=== PATIENT | female | born 1975 | race Native Hawaiian/Other Pacific Islander ===

== ENCOUNTER 2016-07-26 00:55 | Emergency (ER) | payer BC, OTHER ==
--- NOTE | 2016-07-26 01:39 | ED Physician Documentation ---
History of Present Illness - Stated complaint Stated Complaint: COUGHING UP BLOOD - Chief complaint Chief Complaint: Resp - History obtained from History obtained from: Patient, Family - History of Present Illness Timing: Today Pain level max: 0 Pain level now: 0 Improved by: nothing Worsened by: nothing - Additonal information Additional information: Patient is a 40-year-old female who presents to the emergency department after coughing tonight. After a coughing spell, she had a small amount of bright red blood. This is now turned light pink. Not having any dyspnea or chest pain. Not on control pills. No recent surgery. No recent immobilization. Does not smoke. No fevers. Review of Systems Constitutional: denies: Fever, Chills Ears: denies: Ear pain Nose: denies: Rhinorrhea / runny nose, Congestion Cardiac: denies: Chest pain / pressure, Palpitations Respiratory: reports: Cough, Hemoptysis. denies: Dyspnea, Wheezing GI: denies: Nausea, Vomiting, Diarrhea : denies: Dysuria Skin: denies: Rash Musculoskeletal: denies: Neck pain, Back pain Neurologic: denies: Headache PD PAST MEDICAL HISTORY - Past Medical History Past Medical History: No - Present Medications Home Medications: Ambulatory Orders Medication Instructions Recorded Confirmed Azithromycin [Zithromax] 250 mg PO DAILY #4 tablet 07/26/16 - Allergies Allergies/Adverse Reactions: Allergies Allergy/AdvReac Type Severity Reaction Status Date / Time pineapple [Pineapple] Allergy Severe Respiratory Verified 07/26/16 01:08 - Living Situation Living Situation: reports: With family Living Arrangement: reports: At home - Social History Smoking Status: Unknown if ever smoked Does the pt have substance abuse?: No - Family History Family history: reports: Non contributory PD ED PE NORMAL - Vitals Vital signs reviewed: Yes - General General: Alert and oriented X 3, No acute distress, Well developed/nourished - HEENT HEENT: PERRL, Ears normal, Moist mucous membranes, Pharynx benign - Neck Neck: Supple, no meningeal sign - Cardiac Cardiac: RRR, Strong equal pulses - Respiratory Respiratory: No respiratory distress, Clear bilaterally - Abdomen Abdomen: Soft, Non tender, Non distended - Derm Derm: Warm and dry - Extremities Extremities: No edema - Neuro Neuro: Alert and oriented X 3 - Psych Psych: Normal mood, Normal affect Results - Vitals Vitals: Vital Signs - 24 hr 07/26/16 07/26/16 07/26/16 01:08 02:05 03:05 Temperature 36.7 C Heart Rate 76 62 65 Respiratory 18 20 16 Rate Blood Pressure 235/118 H 237/124 H 236/120 H O2 Saturation 97 97 99 Oxygen O2 Source Room air - Rads (name of study) cxr Radiology: Prelim report reviewed, EMP read contemporaneously, See rad report ( Right upper lobe opacities concerning for infiltrates. Bronchial wall thickening consistent with bronchitis or reactive airways disease. No effusions or pneumothorax noted. ) PD MEDICAL DECISION MAKING - ED course Complexity details: reviewed results, re-evaluated patient, considered differential, d/w patient, d/w family ED course: Patient is a 40-year-old female who presents to the emergency department with a small amount of hemoptysis. Appears to be secondary to coughing. Concerning for pneumonia on chest x-ray. Will place on antibiotics and have her follow-up with her doctor. No evidence of pulmonary embolus. No recurrent hemoptysis here. Patient counseled regarding signs and symptoms for which I believe and urgent re-evaluation would be necessary. Patient with good understanding of and agreement to plan and is comfortable going home at this time This document was made in part using voice recognition software. While efforts are made to proofread this document, sound alike and grammatical errors may occur. Departure - Departure Disposition: 01 Home, Self Care Clinical Impression: Hemoptysis Pneumonia Qualifiers: Pneumonia type: due to unspecified organism Laterality: right Lung location: upper lobe of lung Qualified Code(s): J18.1 - Lobar pneumonia, unspecified organism Hypertension Qualifiers: Hypertension type: essential hypertension Qualified Code(s): I10 - Essential ( primary) hypertension Condition: Good Instructions: ED Pneumonia Adult, ED Hemoptysis Follow-Up: your,doctor in 3 days [Other] Prescriptions: Azithromycin [Zithromax] 250 mg PO DAILY #4 tablet Comments: Return if you worsen. This should improve over the next 24 hours. Your blood pressure was elevated today on check in to the emergency department. This does not mean that you have hypertension, it is a common phenomenon to check into the emergency department and have elevated blood pressure. I recommend that you see your primary care physician within the week to have it rechecked when you're feeling better. Forms: Activity restrictions Discharge Date/Time: 07/26/16 03:05
--- NOTE | 2016-07-26 02:07 | XRAY Preliminary Report ---
Exam: XR Chest 2 View PA/LAT IMPRESSION: 1. Right upper lobe opacities concerning for infiltrates. 2. Peribronchial wall thickening consistent with bronchitis or reactive airways disease. 3. No effusions or pneumothorax noted. [facility] SITE ID: [id number]
--- NOTE | 2016-07-26 02:18 | XRAY Report ---
EXAM: CHEST RADIOGRAPHY EXAM DATE: 07/26/2016 01:52 AM. CLINICAL HISTORY: Cough, hemoptysis. COMPARISON: 08/30/2006. TECHNIQUE: 2 views. FINDINGS: Lungs/Pleura: Bronchial wall thickening noted. Reticulonodular opacities are noted in the right upper lobe. Perihilar interstitial prominence present. No effusions or pneumothorax. Mediastinum: Heart and mediastinal contours are unremarkable. Other: None. IMPRESSION: 1. Right upper lobe opacities concerning for infiltrates. 2. Bronchial wall thickening consistent with bronchitis or reactive airways disease. 3. No effusions or pneumothorax noted. [facility] Referring Provider Line: [phone] SITE ID: [id number]
[2016-07-26] MEDS ORDERED: AZITHROMYCIN 250 MG TABLET PO STA (02:55)
[2016-07-26] MEDS ORDERED: AZITHROMYCIN 250 MG TABLET PO ONE (02:59)
[2016-07-26 03:07] VITALS: BP 236/120
== END 2016-07-26 03:05 | disposition home or self-care (01) ==
LOC: ED 00:55
DX: R04.2 Hemoptysis (principal); J18.9 Pneumonia, unspecified organism; I10 Essential (primary) hypertension
CPT/HCPCS: 71020; 99283; A9270

== ENCOUNTER 2016-07-29 15:09 | Outpatient (CLI) | payer BC ==
[2016-07-29 17:44] LABS: BILIRUBIN,URINE NEGATIVE (NEGATIVE); PH,URINE 5.5 PH (5.0-7.5)
[2016-07-29 18:13] LABS: BASOPHILS # (AUTO) 0.1 10^3/uL (0.0-0.1); BASOPHILS % (AUTO) 0.9 %; EOSINOPHILS # (AUTO) 0.2 10^3/uL (0.0-0.7); EOSINOPHILS % (AUTO) 1.8 %; HCT - HEMATOCRIT 40.5 % (37.0-47.0); HGB - HEMOGLOBIN 13.3 g/dL (12.0-16.0); LYMPHOCYTES # (AUTO) 1.9 10^3/uL (1.5-3.5); LYMPHOCYTES % (AUTO) 18.4 %; MEAN CORPUSCULAR HEMOGLOBIN 25.8 pg (27.0-31.0); MEAN CORPUSCULAR HGB CONC 32.8 g/dL (32.0-36.0); MEAN CORPUSCULAR VOLUME 78.8 fL (81.0-99.0); MEAN PLATELET VOLUME 7.9 fL (7.9-10.8); MONOCYTES # (AUTO) 0.7 10^3/uL (0.0-1.0); MONOCYTES % (AUTO) 7.1 %; NEUTROPHILS # (AUTO) 7.3 10^3/uL (1.5-6.6); NEUTROPHILS % (AUTO) 71.8 %; RED BLOOD COUNT 5.15 10^6/uL (4.20-5.40); RED CELL DISTRIBUTION WIDTH 14.6 % (12.0-15.0); UNCORRECTED WHITE BLOOD COUNT 10.1 x10^3/uL; WHITE BLOOD COUNT 10.1 x10^3/uL (4.8-10.8)
[2016-07-29 18:31] LABS: ALBUMIN/GLOBULIN RATIO 0.9 (1.0-2.2); BILIRUBIN,TOTAL 0.2 mg/dL (0.2-1.0); BUN - BLOOD UREA NITROGEN 18 mg/dL (6-20); CALCIUM 8.6 mg/dL (8.5-10.3); CARBON DIOXIDE - CO2 24 mmol/L (21-32); CHLORIDE 104 mmol/L (101-111); CHOL/HDL RATIO 3.9 (<4.4); CHOLESTEROL 181 mg/dL; CREATININE 1.1 mg/dL (0.4-1.0); GFR - MDRD 56 (>89); GLUCOSE 94 mg/dL (70-100); HDL CHOLESTEROL 46 mg/dL; LDL/HDL RATIO 2.5 (<4.4); SODIUM 136 mmol/L (135-145); TOTAL PROTEIN 8.2 g/dL (6.7-8.2); TRIGLYCERIDES 99 mg/dL; UR CULTURE IF IND NOT INDICATED; VLDL CHOLESTEROL 20 mg/dL
== END 2016-07-29 15:10 | disposition home or self-care (01) ==
LOC: LAB.F 15:09
PROVIDERS: ATTEND Internal Medicine
DX: I10 Essential (primary) hypertension (principal)
CPT/HCPCS: 36415; 80053; 80061; 81001; 84443; 85025; 87086

== ENCOUNTER 2016-08-15 16:06 | Outpatient (CLI) | payer BC, OTHER ==
[2016-08-15 19:13] LABS: CREATININE 1.3 mg/dL (0.4-1.0); POTASSIUM 3.2 mmol/L (3.5-5.0)
== END 2016-08-15 16:07 | disposition home or self-care (01) ==
LOC: LAB.F 16:06
PROVIDERS: ATTEND Internal Medicine
DX: I10 Essential (primary) hypertension (principal)
CPT/HCPCS: 36415; 80048

== ENCOUNTER 2016-09-15 15:59 | Outpatient (CLI) | payer BC, OTHER ==
[2016-09-15 18:55] LABS: CREATININE 1.1 mg/dL (0.4-1.0); POTASSIUM 3.8 mmol/L (3.5-5.0)
== END 2016-09-15 16:00 | disposition home or self-care (01) ==
LOC: LAB.F 15:59
PROVIDERS: ATTEND Internal Medicine
DX: I10 Essential (primary) hypertension (principal)
CPT/HCPCS: 36415; 80048

== ENCOUNTER 2016-11-25 15:06 | Outpatient (CLI) | payer BC, OTHER ==
[2016-11-25 18:27] LABS: ALBUMIN/GLOBULIN RATIO 0.8 (1.0-2.2); BILIRUBIN,TOTAL 0.4 mg/dL (0.2-1.0); CREATININE 1.7 mg/dL (0.4-1.0); POTASSIUM 4.1 mmol/L (3.5-5.0); TOTAL PROTEIN 8.6 g/dL (6.7-8.2)
== END 2016-11-25 15:07 | disposition home or self-care (01) ==
LOC: LAB.F 15:06
PROVIDERS: ATTEND Physician Assistant Medical
DX: I10 Essential (primary) hypertension (principal)
CPT/HCPCS: 36415; 80053

== ENCOUNTER 2017-02-24 14:41 | Outpatient (CLI) | payer BC, OTHER ==
[2017-02-24 18:42] LABS: ALBUMIN 3.8 g/dL (3.2-5.5); ALBUMIN/GLOBULIN RATIO 0.8 (1.0-2.2); BILIRUBIN,TOTAL 0.2 mg/dL (0.2-1.0); CALCIUM 8.9 mg/dL (8.5-10.3); CREATININE 1.1 mg/dL (0.4-1.0); TOTAL PROTEIN 8.3 g/dL (6.7-8.2)
== END 2017-02-24 14:42 | disposition home or self-care (01) ==
LOC: LAB.F 14:41
PROVIDERS: ATTEND Physician Assistant Medical
DX: N28.9 Disorder of kidney and ureter, unspecified (principal)
CPT/HCPCS: 36415; 80053

== ENCOUNTER 2017-05-05 10:46 | Outpatient (CLI) | payer BC, OTHER ==
--- NOTE | 2017-05-05 13:33 | XRAY Report ---
TWO VIEW CHEST: 05/05/2017 CLINICAL INDICATION: Cough. COMPARISON: 07/26/2016. FINDINGS: Frontal and lateral views of the chest demonstrate a normal cardiac silhouette. The lungs are clear. No effusion or pneumothorax is present. IMPRESSION: RESOLUTION OF PREVIOUSLY SEEN INFILTRATES. NORMAL CHEST. TD: 05/05/2017 13:32
== END 2017-05-05 10:47 | disposition home or self-care (01) ==
LOC: DI.S 10:46
PROVIDERS: ATTEND Nurse Practitioner Family
DX: R05 Cough (principal)
CPT/HCPCS: 71046

== ENCOUNTER 2017-10-18 13:20 | Outpatient (CLI) | payer BC, OTHER ==
[2017-10-18 18:02] LABS: CALCIUM 8.6 mg/dL (8.5-10.3)
== END 2017-10-18 13:21 | disposition home or self-care (01) ==
LOC: LAB.F 13:20
PROVIDERS: ATTEND Internal Medicine
DX: I10 Essential (primary) hypertension (principal)
CPT/HCPCS: 36415; 80048

== ENCOUNTER 2017-10-23 10:32 | Emergency (ER) | payer BC, OTHER ==
[2017-10-23 11:31] LABS: BILIRUBIN,URINE NEGATIVE (NEGATIVE); GLUCOSE, URINE (UA) NEGATIVE (NEGATIVE); KETONES,URINE (UA) NEGATIVE (NEGATIVE); LEUKOCYTE ESTERASE, URINE NEGATIVE (NEGATIVE); NITRITE,URINE NEGATIVE (NEGATIVE); OCCULT BLOOD,URINE TRACE-LYSE (NEGATIVE); PH,URINE 7.5 PH (5.0-7.5); PROTEIN,URINE TRACE mg/dL (NEGATIVE); UROBILINOGEN,URINE 0.2 (NORMAL) E.U./dL (NORMAL)
[2017-10-23 11:34] LABS: CLARITY,URINE CLEAR (CLEAR)
[2017-10-23 11:35] LABS: HCG UR QUAL NEGATIVE
--- NOTE | 2017-10-23 12:50 | ED Physician Documentation ---
PD HPI HEADACHE - Stated complaint Stated Complaint: LT SIDE TINGLING/GILLIS/CRAMPING - Chief complaint Chief Complaint: Neuro - History obtained from History obtained from: Patient - History of Present Illness Timing - onset: How many days ago (3-4) Timing - onset during: Light activity Timing - duration: Minutes Timing - details: Gradual onset, Now resolved, Intermittant Worst headache ever?: No: Worst headache ever? Location: Back, Global Quality: Throbbing, Aching Associated symptoms: Nausea. No: Fever, Stiff neck, Vomiting, Weakness, Eye pain Improved by: Rest Worsened by: No: Light, Noise Contributing factors: Hypertension. No: Anticoagulated, Recent illness, Trauma Similar symptoms before: Has not had sx before Recently seen: Clinic (had been off BP meds as she was doing well with BP. Meds had run out and did not get refill. Now BP has been elevated and was as high as 200s systolic recently. Seen PCP Clinic and had her prior all 4 meds resumed. This was 2 days prior to starting above symptoms.) Review of Systems Constitutional: denies: Fever, Chills, Myalgias Eyes: reports: Decreased vision (she says vision in left eye was briefly blurry yesterday. Otherwise normal vision. No focal weakness nor fumbling. Says her left arm feels tingling at times the past few days.). denies: Loss of vision, Photophobia Ears: denies: Loss of hearing, Ear pain, Drainage/discharge Nose: denies: Rhinorrhea / runny nose, Congestion Throat: denies: Sore throat Cardiac: denies: Chest pain / pressure, Palpitations Respiratory: denies: Dyspnea, Cough GI: denies: Abdominal Pain, Nausea : denies: Dysuria, Frequency Skin: denies: Rash Neurologic: reports: Headache. denies: Focal weakness, Near syncope, Confused, Altered mental status, Head injury Psychiatric: denies: Depressed, Suicidal Endocrine: denies: Easy bruising / bleeding Immunocompromised: denies: Immunocompromised PD PAST MEDICAL HISTORY - Past Medical History Cardiovascular: Hypertension Respiratory: None Neuro: None GI: GERD, Ulcers - Past Surgical History General: Appendectomy, Colonoscopy - Present Medications Home Medications: Ambulatory Orders Medication Instructions Recorded Confirmed Azithromycin [Zithromax] 250 mg PO DAILY #4 tablet 07/26/16 Naproxen [Naprosyn] 500 mg PO BID PRN #20 tablet 10/23/17 Ondansetron HCl [Zofran] 4 mg PO Q6H PRN #20 tablet 10/23/17 - Allergies Allergies/Adverse Reactions: Allergies Allergy/AdvReac Type Severity Reaction Status Date / Time pineapple [Pineapple] Allergy Severe Respiratory Verified 07/26/16 01:08 - Social History Does the pt smoke?: No Smoking Status: Unknown if ever smoked Does the pt drink ETOH?: No Does the pt have substance abuse?: No - Family History Family history: denies: Cerebral aneurysm - Immunizations Immunizations are current?: Yes PD ED PE NORMAL - Vitals Vital signs reviewed: Yes - General General: Alert and oriented X 3, No acute distress, Well developed/nourished - HEENT HEENT: Atraumatic, PERRL, EOMI, Ears normal, Moist mucous membranes, Pharynx benign - Neck Neck: Supple, no meningeal sign, No adenopathy, No JVD - Cardiac Cardiac: RRR, No murmur - Respiratory Respiratory: Clear bilaterally - Abdomen Abdomen: Soft, Non tender - Back Back: No CVA TTP - Derm Derm: Normal color, Warm and dry - Extremities Extremities: No deformity, No tenderness to palpate, Normal ROM s pain, No edema , No calf tenderness / cord - Neuro Neuro: Alert and oriented X 3, raise driller 2-12 intact, No motor deficit, No sensory deficit, Normal speech, Other (normal gait) Eye Opening: Spontaneous Motor: Obeys Commands Verbal: Oriented GCS Score: 15 Results - Vitals Vitals: Oxygen O2 Source Room air - Labs Labs: Laboratory Tests 10/23/17 10/23/17 10/23/17 11:02 11:18 11:18 WBC RBC Hgb Hct MCV MCH MCHC RDW Plt Count MPV Neut # (Auto) Lymph # (Auto) Hayes # (Auto) Eos # (Auto) Baso # (Auto) Absolute Nucleated RBC Nucleated RBC % Sodium Potassium Chloride Carbon Dioxide Anion Gap BUN Creatinine Estimated GFR (MDRD) Glucose POC Whole Bld Glucose 108 H Calcium Magnesium Total Bilirubin AST ALT Alkaline Phosphatase Troponin I Total Protein Albumin Globulin Albumin/Globulin Ratio Lipase Urine Color YELLOW Urine Clarity CLEAR Urine pH 7.5 Ur Specific [place] 1.015 1.015 Urine Protein TRACE Urine Glucose (UA) NEGATIVE Urine Ketones NEGATIVE Urine Occult Blood TRACE-LYSE Urine Nitrite NEGATIVE Urine Bilirubin NEGATIVE Urine Urobilinogen 0.2 (NORMAL) Ur Leukocyte Esterase NEGATIVE Ur Microscopic Review NOT INDICATED Urine Culture Comments NOT INDICATED Urine HCG, Qual NEGATIVE 10/23/17 10/23/17 10/23/17 13:30 13:30 13:30 WBC 9.5 RBC 5.53 H Hgb 13.2 Hct 40.7 MCV 73.5 L MCH 23.9 L MCHC 32.5 RDW 16.2 H Plt Count 419 MPV 6.7 L Neut # (Auto) 6.8 H Lymph # (Auto) 1.6 Hayes # (Auto) 0.7 Eos # (Auto) 0.2 Baso # (Auto) 0.1 Absolute Nucleated RBC 0.00 Nucleated RBC % 0.0 Sodium 135 Potassium 3.9 Chloride 102 Carbon Dioxide 24 Anion Gap 9.0 BUN 23 H Creatinine 1.0 Estimated GFR (MDRD) 62 L Glucose 117 H POC Whole Bld Glucose Calcium 9.2 Magnesium 2.1 Total Bilirubin 0.7 AST 16 ALT 17 Alkaline Phosphatase 90 Troponin I < 0.04 Total Protein 8.9 H Albumin 3.8 Globulin 5.1 H Albumin/Globulin Ratio 0.7 L Lipase 55 H Urine Color Urine Clarity Urine pH Ur Specific [place] Urine Protein Urine Glucose (UA) Urine Ketones Urine Occult Blood Urine Nitrite Urine Bilirubin Urine Urobilinogen Ur Leukocyte Esterase Ur Microscopic Review Urine Culture Comments Urine HCG, Qual - Rads (name of study) head CT Radiology: Prelim report reviewed (normal study) PD MEDICAL DECISION MAKING - ED course Complexity details: reviewed results (labs and CT are okay. She has had symptoms for days and serious causes like bleed/tumor/mass effect/large CVA are excluded. Small CVA or lesions like MS might be missed. Talked with patient about potential other imaging if not improved with oral meds for few days. Otherwise the symptoms started couple days after resuming 3 BP meds, so most likely side effect of those. To cut down to just one of them (or two) and see how BP does. It was a bit too good at times here in ED (down to 120 systolic). ), considered differential (the arm tingling sounds like it is from shoulder impingement, worse with ROM and lifting of arm. Intermittent headache generally. Had difficulty completing one sentence yesterday at work, otherwise normal speech, motor, interaction and conversation. ), d/w patient - Sepsis Event Vital Signs: Oxygen O2 Source Room air Departure - Departure Disposition: 01 Home, Self Care Clinical Impression: Tingling of left upper extremity Headache Qualifiers: Headache type: unspecified Headache chronicity pattern: acute headache Intractability: not intractable Qualified Code(s): R51 - Headache Hypertension Qualifiers: Hypertension type: essential hypertension Qualified Code(s): I10 - Essential ( primary) hypertension Condition: Stable Record reviewed to determine appropriate education?: Yes Instructions: ED Cephalgia Unspecified Follow-Up: Levi Wetzel MD [Primary Care Provider] - Prescriptions: Naproxen [Naprosyn] 500 mg PO BID PRN #20 tablet PRN Reason: Pain Ondansetron HCl [Zofran] 4 mg PO Q6H PRN #20 tablet PRN Reason: Nausea / Vomiting Comments: I would decrease her blood pressure medicine to just the losartan and may be the chlorthalidone with potassium as well. Hold off on the lisinopril for sure for now. See how your blood pressure does over the next week. It may be that you do not need to be on all the medicines he had been on previously. Your blood pressure was quite good here and perhaps a little too good right away. Use some naproxen twice daily if needed for headache. Add ondansetron if needed for nausea. The CT scan and blood tests and your heart monitor did not show any signs of acute intracranial or cardiac process. Follow-up with your primary care in about a week, call for an appointment. Discharge Date/Time: 10/23/17 15:38
[2017-10-23] MEDS ORDERED: ACETAMINOPHEN 325 MG TABLET PO STA (13:22)
[2017-10-23] MEDS ORDERED: NAPROXEN 250 MG TABLET PO STA (13:22)
[2017-10-23] MEDS ORDERED: ONDANSETRON ODT 4 MG TABLET TL STA (13:22)
[2017-10-23 13:39] LABS: BASOPHILS # (AUTO) 0.1 10^3/uL (0.0-0.1); BASOPHILS % (AUTO) 1.1 %; EOSINOPHILS # (AUTO) 0.2 10^3/uL (0.0-0.7); EOSINOPHILS % (AUTO) 2.2 %; HGB - HEMOGLOBIN 13.2 g/dL (12.0-16.0); LYMPHOCYTES # (AUTO) 1.6 10^3/uL (1.5-3.5); LYMPHOCYTES % (AUTO) 17.2 %; MEAN CORPUSCULAR HEMOGLOBIN 23.9 pg (27.0-31.0); MEAN CORPUSCULAR HGB CONC 32.5 g/dL (32.0-36.0); MEAN CORPUSCULAR VOLUME 73.5 fL (81.0-99.0); MEAN PLATELET VOLUME 6.7 fL (7.9-10.8); MONOCYTES # (AUTO) 0.7 10^3/uL (0.0-1.0); MONOCYTES % (AUTO) 7.5 %; NEUTROPHILS # (AUTO) 6.8 10^3/uL (1.5-6.6); PLT - PLATELET COUNT 419 10^3/uL (130-450); RED BLOOD COUNT 5.53 10^6/uL (4.20-5.40); RED CELL DISTRIBUTION WIDTH 16.2 % (12.0-15.0); WHITE BLOOD COUNT 9.5 x10^3/uL (4.8-10.8)
[2017-10-23 13:51] LABS: ALBUMIN 3.8 g/dL (3.2-5.5); ALBUMIN/GLOBULIN RATIO 0.7 (1.0-2.2); BILIRUBIN,TOTAL 0.7 mg/dL (0.2-1.0); CALCIUM 9.2 mg/dL (8.5-10.3); MAGNESIUM 2.1 mg/dL (1.7-2.8); TOTAL PROTEIN 8.9 g/dL (6.7-8.2)
--- NOTE | 2017-10-23 13:55 | CT Report ---
Reason: headache and left arm tingling Procedure Date: 10/23/2017 Accession Number: [id number] / [id number] Procedure: CT - Head W/O CPT Code: FULL RESULT: EXAM: CT HEAD EXAM DATE: 10/23/2017 01:47 PM. CLINICAL HISTORY: Tingling in left arm. Headache. COMPARISON: None. TECHNIQUE: Multiaxial CT images were obtained from the foramen magnum to the vertex. Reformats: Sagittal and coronal. IV contrast: None. In accordance with CT protocol optimization, one or more of the following dose reduction techniques were utilized for this exam: automated exposure control, adjustment of mA and/or KV based on patient size, or use of iterative reconstructive technique. FINDINGS: Parenchyma: No intraparenchymal hemorrhage. No evidence of mass, midline shift, or CT findings of infarction. Paez-white differentiation is distinct. Extraaxial Spaces: Normal for age. No subdural or epidural collections identified. Ventricles: Normal in size and position. Sinuses and Orbits: Imaged paranasal sinuses, orbits, and mastoids show no significant abnormality. Bones: No evidence of fracture or calvarial defect. Other: None. IMPRESSION: Negative nonenhanced head CT. [facility]
[2017-10-23 14:29] VITALS: BP 127/88
== END 2017-10-23 15:38 | disposition home or self-care (01) ==
LOC: ED 10:32
DX: R20.0 Anesthesia of skin (principal); R51 Headache; I10 Essential (primary) hypertension
CPT/HCPCS: 36415; 70450; 80053; 81003; 81025; 83690; 83735; 84484; 85025; 99283; A9270; Q0162; 81001; 87086

== ENCOUNTER 2019-07-02 07:00 | Outpatient (CLI) | payer BC, OTHER ==
[2019-07-02 22:13] LABS: CANDIDA GROUP DNA NEGATIVE (NEGATIVE); CANDIDA KRUSEI DNA NEGATIVE (NEGATIVE); TRICHOMONAS VAGINALIS DNA NEGATIVE (NEGATIVE)
== END 2019-07-02 23:59 | disposition home or self-care (01) ==
LOC: LAB.R 07:00
PROVIDERS: ATTEND Obstetrics & Gynecology
DX: N76.0 Acute vaginitis (principal)
CPT/HCPCS: 87661; 87801

== ENCOUNTER 2019-09-06 10:16 | Outpatient (CLI) | payer OTHER, BC ==
[2019-09-06 11:21] LABS: HB2 TOTAL 11.3 g/dL; HEMOGLOBIN A1C 0.52 g/dL; HEMOGLOBIN A1C % 6.4 % (4.6-6.2)
[2019-09-06 11:42] LABS: CHOL/HDL RATIO 3.8 (<4.4); CHOLESTEROL 187 mg/dL; HDL CHOLESTEROL 49 mg/dL; LDL CHOLESTEROL,CALCULATED 113 mg/dL; LDL/HDL RATIO 2.3 (<4.4); VLDL CHOLESTEROL 25 mg/dL
[2019-09-06 11:50] LABS: FOLLICLE STIMULATING HORMONE 3.76 mIU/mL
== END 2019-09-06 10:17 | disposition home or self-care (01) ==
LOC: LAB 10:16
PROVIDERS: ATTEND Obstetrics & Gynecology
DX: E78.00 Pure hypercholesterolemia, unspecified (principal); E28.2 Polycystic ovarian syndrome; Z86.32 Personal history of gestational diabetes; N93.8 Other specified abnormal uterine and vaginal bleeding
CPT/HCPCS: 36415; 80061; 81599; 82670; 83001; 83036; 83498; 83721; 84403; 84443

== ENCOUNTER 2019-09-10 10:42 | Outpatient (CLI) | payer OTHER, BC | END 2019-09-10 10:43 | disposition home or self-care (01) | LOC: LAB 10:42 | PROVIDERS: ATTEND Obstetrics & Gynecology | DX: E28.2 Polycystic ovarian syndrome (principal); R73.09 Other abnormal glucose | CPT/HCPCS: 36415; 82951 ==

== ENCOUNTER 2019-09-22 07:20 | Outpatient (CLI) | payer OTHER, BC ==
--- NOTE | 2019-09-22 11:40 | Ultrasound Report ---
PROCEDURE: Pelvic w/Transvaginal INDICATIONS: HYPERETROGENISM, DUB, POLYCYSTIC OVARY SYNDROME TECHNIQUE: Real-time scanning was performed of the pelvic organs, with image documentation. Additional endovagi nal scanning was necessary due to incomplete visualization of the adnexal and endometrial structures by transabdominal scanning. COMPARISON: None. FINDINGS: Transabdominal scanning: Limited scanning through the kidneys shows no hydronephrosis. No pathologi c free abdominal or pelvic fluid. Endovaginal scanning: Uterus: Uterus is normal in size at 11.2 x 4.8 x 6.2 cm. Uterine echotexture is diffusely heterogen eous The endometrium measures 8 mm in combined thickness. Ovaries: Right ovary is within normal limits and contains a dominant follicular cyst measuring 19 mm . Left ovary is not seen. IMPRESSION: 1. Heterogeneous uterine echotexture, which is of uncertain significance, and could be further assess ed with pelvic MRI with and without intravenous contrast, if clinically indicated. 2. Normal right ovary. Left ovary not seen. Reviewed by: Phillip Salomon MD on 09/22/2019 11:38 AM PDT Approved by: Phillip Salomon MD on 09/22/2019 11:38 AM PDT Station ID: [id number]
== END 2019-09-22 07:21 | disposition home or self-care (01) ==
LOC: DI 07:20
PROVIDERS: ATTEND Obstetrics & Gynecology
DX: R93.89 Abnormal findings on diagnostic imaging of other specified body structures (principal)
CPT/HCPCS: 76830; 76856

== ENCOUNTER 2019-10-02 08:26 | Outpatient (CLI) | payer OTHER, BC ==
--- NOTE | 2019-10-03 09:23 | Mammography Report ---
BILATERAL DIGITAL SCREENING MAMMOGRAM 3D/2D: 10/02/2019 CLINICAL: Routine screening. Baseline exam. No prior exams were available for comparison. The tissue of both breasts is heterogeneously dense. T his may lower the sensitivity of mammography. There is an oval equal density focal asymmetry with an indistinct margin in the left breast at 1 o'cl ock posterior depth. No other significant masses, calcifications, or other findings are seen in either breast. IMPRESSION: INCOMPLETE: NEEDS ADDITIONAL IMAGING EVALUATION The oval equal density focal asymmetry in the left breast is indeterminate. Mediolateral and spot co mpression views as well as additional views with possible ultrasound are recommended. This exam was interpreted at Station ID: [id number]. NOTE: For mammograms, a report in lay terms will be sent to the patient. Approximately 15% of breast malignancies will not be visualized mammographically. In the management of a palpable breast mass, a negative mammogram must not discourage biopsy of a clinically suspicious lesion. Electronically Signed By: Jose Alejandro España M.D. ddp/penrad:10/02/2019 10:08:00 ACR BI-RADS Category 0: Incomplete 3340F PARENCHYMAL PATTERN: (D) - The breast(s) demonstrate(s) heterogeneously dense fibroglandular pargulshany ma. BI-RADS CATEGORY: (0) - 0 Mammo and [place] [id number] Immediate follow-up LATERALITY: (B)
== END 2019-10-02 08:27 | disposition home or self-care (01) ==
LOC: DI 08:26
PROVIDERS: ATTEND Family Medicine
DX: Z12.31 Encounter for screening mammogram for malignant neoplasm of breast (principal); R92.8 Other abnormal and inconclusive findings on diagnostic imaging of breast
CPT/HCPCS: 77063; 77067

== ENCOUNTER 2020-02-10 08:00 | Outpatient (CLI) | payer OTHER, BC | END 2020-02-10 23:59 | disposition home or self-care (01) | LOC: LAB.R 08:00 | PROVIDERS: ATTEND Physician Assistant Medical | DX: N39.0 Urinary tract infection, site not specified (principal); R30.0 Dysuria | CPT/HCPCS: 87086 ==

== ENCOUNTER 2021-08-25 08:00 | Outpatient (CLI) | payer OTHER, BC ==
--- NOTE | 2021-08-25 12:20 | XRAY Report ---
PROCEDURE: Chest 2 View X-Ray INDICATIONS: ACUTE COUGH TECHNIQUE: 2 view(s) of the chest. COMPARISON: Chest radiograph 07/26/2016. FINDINGS: Surgical changes and devices: None. Lungs and pleura: No pleural effusions or pneumothorax. No suspicious focal airspace opacity. Mediastinum: Mediastinal contours are normal. Cardiac silhouette is at the upper limits of normal in size, similar to before. Bones and chest wall: No suspicious bony abnormalities. Soft tissues appear unremarkable. IMPRESSION: No acute cardiopulmonary abnormality. Reviewed by: Nakul Jacobson MD on 08/25/2021 8:30 AM PDT Approved by: Nakul Jacobson MD on 08/25/2021 8:30 AM PDT Station ID: [id number]
== END 2021-08-25 23:59 | disposition home or self-care (01) ==
LOC: DI.S 08:00
PROVIDERS: ATTEND Registered Nurse
DX: R05.1 Acute cough (principal); R06.09 Other forms of dyspnea

== ENCOUNTER 2022-01-16 09:54 | Emergency (ER) | payer OTHER, BC ==
[2022-01-16 10:14] VITALS: BP 184/91
--- NOTE | 2022-01-16 11:28 | XRAY Report ---
PROCEDURE: Foot 3 View RT INDICATIONS: Trauma TECHNIQUE: 3 views of the foot were acquired. COMPARISON: None FINDINGS: Bones: No fractures or dislocations. No suspicious bony lesions. Plantar and posterior calcaneal s purs noted Soft tissues: No tibiotalar joint effusion. Achilles tendon appears normal. IMPRESSION: Calcaneal spur. No fracture or foreign body Reviewed by: Mauricio Nesbitt MD on 01/16/2022 10:26 AM [facility] Approved by: Mauricio Nesbitt MD on 01/16/2022 10:26 AM [facility] Station ID: [id number]
--- NOTE | 2022-01-16 11:34 | ED Physician Documentation ---
PD HPI LOWER EXT INJURY - Stated complaint Stated Complaint: RT FT INJ - Chief complaint Chief Complaint: Ext Problem - History obtained from History obtained from: Patient - History of Present Illness PD HPI LOW EXT INJURY LOCATION: Right, Foot, Toe Type of injury: Blunt / blow (she states she twisted toe when stepped out of bed yesterday, with some pain at the toe. however it is markedly more painful to movement and tough today. with some redness.) Where injury occurred: Home Timing - onset: Yesterday (morning yesterday.) Timing - details: Abrupt onset, Still present (worsened significantly overnight into this morning.) Improved by: Rest Worsened by: Moving, Palpating Associated symptoms: Swelling, Discolored (some redness). No: Weakness, Numbness Similar symptoms before: Has not had sx before Recently seen: Not recently seen Review of Systems Constitutional: denies: Fever, Chills Skin: denies: Abrasion (s), Laceration (s) Neurologic: denies: Focal weakness, Numbness PD PAST MEDICAL HISTORY - Past Medical History Cardiovascular: Hypertension Respiratory: None Neuro: None GI: GERD, Ulcers Musculoskeletal: Other (no prior gout) - Past Surgical History General: Appendectomy, Colonoscopy - Present Medications Home Medications: Ambulatory Orders Medication Instructions Recorded Confirmed Chlorthalidone 25 mg PO DAILY 10/09/19 01/16/22 Potassium Chloride 10 meq PO BID 10/09/19 01/16/22 Lisinopril [Zestril] 10 mg PO DAILY 01/16/22 01/16/22 Naproxen 500 mg PO BID #20 tab 01/16/22 Oxycodone HCl/Acetaminophen 1 each PO Q6H PRN #14 tablet 01/16/22 [Percocet 5-325 mg Tablet] metFORMIN [Glucophage] 500 mg PO BIDWM 01/16/22 01/16/22 - Allergies Allergies/Adverse Reactions: Allergies Allergy/AdvReac Type Severity Reaction Status Date / Time pineapple [Pineapple] Allergy Severe Respiratory Verified 01/16/22 10:14 - Social History Does the pt smoke?: No Smoking Status: Unknown if ever smoked Does the pt drink ETOH?: No Does the pt have substance abuse?: No - Immunizations Immunizations are current?: Yes PD ED PE NORMAL - Vitals Vital signs reviewed: Yes - General General: Alert and oriented X 3, Well developed/nourished, Other (appears in pain with even slight toe movement. ) - Derm Derm: Warm and dry. No: Normal color (redness with some warmth and swelling dorsal medial great toe mtp. Very tender. No lac nor abrasions. ) - Neuro Neuro: No motor deficit, No sensory deficit Results - Vitals Vitals: Oxygen O2 Source Room air - Rads (name of study) foot xray Radiology: Prelim report reviewed (no fractures), See rad report PD MEDICAL DECISION MAKING - ED course Complexity details: considered differential (mild injury of great toe with now marked pain and tender. Consider initial onset of gout from the injury. ), d/w patient Departure - Departure Disposition: Home, Self Care Clinical Impression: Strain of toe Qualifiers: Encounter type: initial encounter Laterality: right Qualified Code(s): S96.911A - Strain of unspecified muscle and tendon at ankle and foot level, right foot, initial encounter Condition: Stable Record reviewed to determine appropriate education?: Yes Instructions: ED Sprain Toe Follow-Up: Didi Dave ARNP [Primary Care Provider] - Prescriptions: Naproxen 500 mg PO BID #20 tab Oxycodone HCl/Acetaminophen [Percocet 5-325 mg Tablet] 1 each PO Q6H PRN #14 tablet PRN Reason: pain Comments: Your x-ray is good without any signs of fracture or dislocation. I presume he have a sprain of the toe with subsequent swelling and pain. However the degree of pain along with some redness and warmth in the area is suggestive of precipitating gout type inflammation of the joint. Use the firm soled shoe to help displace pressure on the toe. Crutches as needed for partial weightbearing. I would suggest anti-inflammatory of naproxen twice daily with food for the next 5 to 7 days. Add Tylenol every 4-6 hours if needed for pain or Percocet if needed for worse pain. I would anticipate improvement over the next 3 to 5 days. I sent your prescription to [facility] in [place]. I am prescribing a short course of narcotic pain medication for you. These are potentially dangerous and addictive medications that should be used carefully. These medications may constipate you. Take an bcnj-bko-cboldcf stool softener such as docusate twice daily with plenty of water while taking these medications. If you go 24 hours without a bowel movement, take [id number] MiraLAX, per package instructions. Do not drink or drive while taking these medications. If you received narcotic or sedating medications while in the emergency department do not drive for 24 hours. Store this medication in a safe, secure place and out of reach of children. It is a violation of federal law to give or sell this medication to another person or to use in a manner other than prescribed. The ED will not refill narcotic prescriptions, including prescriptions lost or stolen. You can dispose of unwanted medications at the [facility]'s office or at several pharmacies such as [facility]. Discharge Date/Time: 01/16/22 12:23
[2022-01-16] MEDS ORDERED: NAPROXEN 250 MG TABLET PO STA (11:47)
[2022-01-16] MEDS ORDERED: HYDROcod/ACETAM 5/325 MG TABLET PO STA (11:48)
== END 2022-01-16 12:23 | disposition home or self-care (01) ==
LOC: ED 09:54
DX: S96.911A Strain of unspecified muscle and tendon at ankle and foot level, right foot, initial encounter (principal); X58.XXXA Exposure to other specified factors, initial encounter
CPT/HCPCS: 73630; 99282; 99283; A9270

== ENCOUNTER 2022-01-25 08:00 | Outpatient (CLI) | payer OTHER, BC ==
[2022-01-27 15:08] LABS: BORDETELLA PARAPERTUSSIS DNA Negative (Negative); BORDETELLA PERTUSSIS DNA Negative (Negative)
== END 2022-01-25 23:59 | disposition home or self-care (01) ==
LOC: LAB.S 08:00
PROVIDERS: ATTEND Physician Assistant
DX: R05.1 Acute cough (principal); J03.90 Acute tonsillitis, unspecified
CPT/HCPCS: 87070; 87798

== ENCOUNTER 2022-06-08 20:17 | Outpatient (CLI) | payer OTHER, BC | END 2022-06-08 20:18 | disposition critical access hospital (66) | LOC: EMS 20:17 | DX: R51.9 Headache, unspecified (principal); R40.4 Transient alteration of awareness; R11.0 Nausea; H53.8 Other visual disturbances; W21.07XA Struck by softball, initial encounter; Y92.320 Baseball field as the place of occurrence of the external cause | CPT/HCPCS: A0425; A0427 ==

== ENCOUNTER 2022-06-08 20:24 | Emergency (ER) | payer OTHER, BC ==
--- NOTE | 2022-06-08 21:15 | ED Physician Documentation ---
PD HPI HEAD INJURY - Stated complaint Stated Complaint: HEAD INJ - Chief complaint Chief Complaint: Heent - History obtained from History obtained from: Patient - Additional information Additional information: HPI is from patient with contribution from EMS. Patient is brought in by ambulance. Approximately 30 to 45 minutes prior to arrival, patient was at a softball game sitting in the bleachers. She recalls opening a can of soda (was looking down), heard someone yell "ball!", and her next memory is people around her holding her head up and urging to stay awake. Per EMS (whose HPI was informed by others who were seated next to her), patient was hit in the head with a softball, appeared dazed but did not lose consciousness for a minute or two, then had complete loss of consciousness that lasted approximately 30-45 seconds. Patient says that she initially had left eye blurry vision but this has resolved. She does complain of a left-sided headache. She denies numbness, weakness. She denies nausea, vomiting. Patient does not take any blood thinning medications. Review of Systems Eyes: reports: Decreased vision (left eye, resolved PHOTOGRAPHIC PROCESSOR) GI: denies: Nausea, Vomiting Musculoskeletal: denies: Neck pain Neurologic: reports: Headache, Head injury, LOC. 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 - Present Medications Home Medications: Ambulatory Orders Medication Instructions Recorded Confirmed Chlorthalidone 25 mg PO DAILY 10/09/19 01/16/22 Potassium Chloride 10 meq PO BID 10/09/19 01/16/22 Lisinopril [Zestril] 10 mg PO DAILY 01/16/22 01/16/22 Naproxen 500 mg PO BID #20 tab 01/16/22 Oxycodone HCl/Acetaminophen 1 each PO Q6H PRN #14 tablet 01/16/22 [Percocet 5-325 mg Tablet] metFORMIN [Glucophage] 500 mg PO BIDWM 01/16/22 01/16/22 - Allergies Allergies/Adverse Reactions: Allergies Allergy/AdvReac Type Severity Reaction Status Date / Time pineapple [Pineapple] Allergy Severe Respiratory Verified 01/16/22 10:14 - Social History Does the pt smoke?: No Smoking Status: Unknown if ever smoked Does the pt drink ETOH?: No Does the pt have substance abuse?: No - Immunizations Immunizations are current?: Yes PD ED PE NORMAL - Vitals Vital signs reviewed: Yes - General General: Alert and oriented X 3, No acute distress, Well developed/nourished - HEENT HEENT: Atraumatic, PERRL, EOMI, Other (no scalp tenderness, no facial tenderness) - Cardiac Cardiac: RRR - Neuro Neuro: Alert and oriented X 3, 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, No motor deficit, Normal speech Eye Opening: Spontaneous Motor: Obeys Commands Verbal: Oriented GCS Score: 15 - Psych Psych: Normal mood, Normal affect PD ED PE EXPANDED - Cardiac Cardiac: Murmur Present (1/6 JUANA left second ICS) Results - Vitals Vitals: Vital Signs - 24 hr 06/08/22 06/08/22 06/08/22 20:32 22:20 23:13 Temperature 36.8 C Heart Rate 87 73 75 Respiratory 16 16 18 Rate Blood Pressure 211/103 H 204/111 H 216/104 H O2 Saturation 99 100 99 06/08/22 06/09/22 23:25 00:13 Temperature Heart Rate 72 73 Respiratory 18 Rate Blood Pressure 211/112 H 188/101 H O2 Saturation 99 Oxygen O2 Source Room air - Labs Labs: Laboratory Tests 06/08/22 06/08/22 21:58 21:58 WBC 13.4 H RBC 5.16 Hgb 10.1 L Hct 34.5 L MCV 66.9 L MCH 19.6 L MCHC 29.3 L RDW 17.3 H Plt Count 403 MPV 7.9 Neut # (Auto) 10.4 H Lymph # (Auto) 1.9 [place] # (Auto) 0.8 Eos # (Auto) 0.1 Baso # (Auto) 0.1 Absolute Nucleated RBC 0.00 Nucleated RBC % 0.0 Manual Slide Review Indicated Platelet Estimate NORMAL (130-450,000) Platelet Morphology NORMAL APPEARANCE RBC Morph Micro Appear 1+ POLYCHROMASIA Sodium 139 Potassium 4.1 Chloride 107 Carbon Dioxide 25 Anion Gap 7.0 BUN 21 H Creatinine 1.3 H Estimated GFR (MDRD) 44 L Glucose 113 H Calcium 8.9 - Rads (name of study) CTH Relevant Findings:: Prelim report reviewed, EMP independent interpretation of test (I reviewed these images and my interpretation is no abnormality; specifically, no evidence of skull fracture nor intracranial hemorrhage.), See rad report PD Medical Decision Making - ED course Complexity details: reviewed results, re-evaluated patient, considered differential, d/w patient ED course: Patient noted to have significantly elevated blood pressure on initial vital signs which persisted through several readings; she is thus given 20mg IVP labetalol and basic blood tests ordered. Early in her stay, her systolic blood pressures were as high as 240s ,diastolic blood pressures as high as 260s. She had mild improvement with the 20 mg of labetalol, she was given a second dose of 20 mg IV labetalol as well as 20 mg of oral lisinopril with subsequent gradual but significant improvement in her blood pressure. Prior to discharge her systolic blood pressure was 188 over a 101 diastolic blood pressure.The patient takes lisinopril 10 mg daily as well as chlorthalidone, But she admits that she has missed the last few days of both these medications.There are no particularly concerning findings on the blood test, although her creatinine is noted to be mildly elevated at 1.3. Previous results available in [facility] indicate that in 2017 she had a creatinine levels running from 1.1-1.7, but, prior to feli's visit, the most recent creatinine levels were from 2018 and at that time, they were normal at 1.0. I discussed with her the importance of taking her blood pressure medications as prescribed. We also discussed that her blood pressure is still quite elevated at the time of discharge, but improved enough for safe discharge home considering that she has symptoms at this time attributable to her hypertension. We discussed the mildly abnormal kidney function tests, and I instructed her to follow-up with her primary care provider for reevaluation of the hypertension as well as the abnormal BUN and creatinine. The CT of her head is unremarkable. She is in no obvious distress on initial evaluation nor on reevaluation prior to discharge. She declines pain medication for her headache, which she says is mild at the time of discharge; she says she will take uyjy-ghi-[id number] medications when she gets home such as Tylenol. Departure - Departure Disposition: Home, Self Care Clinical Impression: Head injury with loss of consciousness Hypertension Qualifiers: Hypertension type: unspecified Qualified Code(s): I10 - Essential (primary) hypertension Condition: Good Instructions: ED Head Injury Closed Sleep Mon, ED Hypertension Conf Out Of Control Comments: There were no abnormalities on the CT scan of your head. Your blood pressure readings were particularly elevated during your ER visit tonight. You are given medications, both orally and intravenously, to lower the blood pressure. These medications have the intended effect, but realized that your blood pressure at the time of discharge is still elevated and thus you should follow-up with your primary care provider, next available appointment, for reevaluation. As we discussed, your kidney function tests on the blood work were slightly elevated. You should also mention this to your primary care provider when you follow up. Discharge Date/Time: 06/09/22 00:14
[2022-06-08] MEDS ORDERED: LABETALOL 20 MG/4 ML SYRINGE IVP STA ×2 (21:16→22:52)
[2022-06-08 22:02] LABS: BASOPHILS # (AUTO) 0.1 10^3/uL (0.0-0.1); BASOPHILS % (AUTO) 0.6 %; EOSINOPHILS # (AUTO) 0.1 10^3/uL (0.0-0.7); EOSINOPHILS % (AUTO) 0.9 %; HCT - HEMATOCRIT 34.5 % (37.0-47.0); HGB - HEMOGLOBIN 10.1 g/dL (12.0-16.0); LYMPHOCYTES # (AUTO) 1.9 10^3/uL (1.5-3.5); LYMPHOCYTES % (AUTO) 14.3 %; MEAN CORPUSCULAR HEMOGLOBIN 19.6 pg (27.0-31.0); MEAN CORPUSCULAR HGB CONC 29.3 g/dL (32.0-36.0); MEAN CORPUSCULAR VOLUME 66.9 fL (81.0-99.0); MEAN PLATELET VOLUME 7.9 fL (7.9-10.8); MONOCYTES # (AUTO) 0.8 10^3/uL (0.0-1.0); MONOCYTES % (AUTO) 6.2 %; NEUTROPHILS # (AUTO) 10.4 10^3/uL (1.5-6.6); NEUTROPHILS % (AUTO) 77.6 %; PLT - PLATELET COUNT 403 10^3/uL (130-450); RED BLOOD COUNT 5.16 10^6/uL (4.20-5.40); RED CELL DISTRIBUTION WIDTH 17.3 % (12.0-15.0); WHITE BLOOD COUNT 13.4 x10^3/uL (4.8-10.8)
[2022-06-08 22:13] LABS: CALCIUM 8.9 mg/dL (8.5-10.3); CREATININE 1.3 mg/dL (0.4-1.0); POTASSIUM 4.1 mmol/L (3.5-5.0)
[2022-06-08 22:27] LABS: PLATELET ESTIMATE, MANUAL NORMAL (130-450,000) (NORMAL); PLATELET MORPHOLOGY NORMAL APPEARANCE (NORMAL); SLIDE REVIEW? Indicated
--- NOTE | 2022-06-08 22:35 | CT Report ---
PROCEDURE: HEAD WO INDICATIONS: head injury with LOC TECHNIQUE: Noncontrast 4.5 mm thick angled axial sections acquired from the foramen magnum to the vertex. For r adiation dose reduction, the following was used: automated exposure control, adjustment of mA and/or kV according to patient size. COMPARISON: Head CT 10/23/2017. FINDINGS: Image quality: Excellent. CSF spaces: Basal cisterns are patent. No extra-axial fluid collections. Ventricles are normal in size and shape. Brain: No midline shift. No intracranial masses or hemorrhage. Paez-white matter interface is norm al. Skull and face: Calvarium and visualized facial bones are intact, without suspicious lesions. Sinuses: Visualized sinuses and mastoids are clear. IMPRESSION: No acute intracranial abnormality. Reviewed by: Nadir Wang MD on 06/08/2022 10:34 PM PDT Approved by: Nadir Wang MD on 06/08/2022 10:34 PM PDT Station ID: [id number]
[2022-06-08] MEDS ORDERED: lisinopriL 5 MG TABLET PO STA (22:51)
[2022-06-09 00:14] VITALS: BP 188/101
== END 2022-06-09 00:14 | disposition home or self-care (01) ==
LOC: EDUNIT# → ED 20:24
DX: S06.9X1A Unspecified intracranial injury with loss of consciousness of 30 minutes or less, initial encounter (principal); W21.07XA Struck by softball, initial encounter; I10 Essential (primary) hypertension; E11.9 Type 2 diabetes mellitus without complications; Z79.84 Long term (current) use of oral hypoglycemic drugs
CPT/HCPCS: 36415; 70450; 80048; 85025; 96374; 96376; 99284; A9270